=== PATIENT | male | born 1995 ===

== ENCOUNTER → 2023-04-02 11:44 | Outpatient (CLI) | payer SELFPAY ==
--- NOTE | ~2023-04-02 | US_ITS ---
EXAMINATION: US scrotum doppler DATE: 04/02/2023 12:18 INDICATION: 2 weeks of left testicular pain TECHNIQUE: Testicular sonogram utilizing grayscale and Doppler COMPARISON: None. FINDINGS: The right testis measures 4.7 x 2.8 x 3.2 cm. The left testis measures 4.8 x 2.6 x 2.7 cm. Multiple b ilateral tiny punctate echogenic foci consistent with testicular microlithiasis. Otherwise normal sym metric normal grayscale appearance to both testes. There is normal vascular flow to both testes. 4 mm anechoic right epididymal head cyst. The right epididymis is otherwise normal with normal vascular f low. The left epididymis is normal with normal vascular flow. Mild left varicocele with vessels dilat ed to nearly 3 mm which augment with Valsalva. No hydrocele or right-sided varicocele. IMPRESSION: 1. 4 mm right epididymal head cyst and bilateral testicular microlithiasis. Otherwise normal testes and epididymides. 2. Mild left varicocele. Reviewed, dictated and finalized at location [facility] IMPRESSION: 1. 4 mm right epididymal head cyst and bilateral testicular microlithiasis. Ot herwise normal testes and epididymides. 2. Mild left varicocele.
== END ==
PROVIDERS: PCP Physician Assistant; Visit Provider Physician Assistant
DX: N50.812 Left testicular pain (principal); I86.1 Scrotal varices
CPT/HCPCS: 76870; 93976